=== PATIENT | female | born 1950 | race American Indian/Alaskan Native ===

== ENCOUNTER 2017-05-07 23:33 | Emergency (ER) | payer MEDICARE ==
[2017-05-08] MEDS ORDERED: ASPIRIN PO ONE (00:13)
[2017-05-08 00:36] LABS: Basophils # (Auto) 0.1 K/mm3 (0.0-0.1); Basophils % (Auto) 0.9 % (0.0-1.8); Eosinophils # (Auto) 0.2 K/mm3 (0.0-0.4); Eosinophils % (Auto) 2.1 % (0.0-4.3); Hematocrit 37.6 % (30.3-42.9); Hemoglobin 12.3 gm/dl (10.1-14.3); Lymphocytes # (Auto) 2.6 K/mm3 (1.2-5.4); Lymphocytes % (Auto) 32.6 % (13.4-35.0); Mean Corpuscular HGB Conc 33 % (30-34); Mean Corpuscular Hemoglobin 29 pg (28-32); Mean Corpuscular Volume 89 fl (79-97); Monocytes # (Auto) 0.6 K/mm3 (0.0-0.8); Monocytes % (Auto) 7.3 % (0.0-7.3); Platelet Count 245 K/mm3 (140-440); Red Blood Count 4.21 M/mm3 (3.65-5.03); Red Cell Distribution Width 15.1 % (13.2-15.2)
[2017-05-08] MEDS ORDERED: APRESOLINE IV ONE (00:55)
[2017-05-08 01:02] LABS: Calcium 8.8 mg/dL (8.4-10.2)
[2017-05-08] MEDS ORDERED: ZOFRAN IV ONE (01:26)
[2017-05-08] MEDS ORDERED: MORPHINE IV ONE (01:26)
--- NOTE | 2017-05-08 01:29 | Emergency Department Report ---
HPI - General Chief Complaint: Chest Pain Time Seen by Provider: 05/08/17 00:51 - HPI HPI: The patient is a 67-year-old female who presents for evaluation of abdominal pain. The patient reports bilateral upper abdominal pain since last light, 12 hours ago, currently 5/10 in severity, cramping in quality, intermittent, waxing and waning, exacerbated with movement. She also reports this patient some fluttering in the chest, but no chest pain. The patient also denies fever, chills, night sweats, bilious vomiting, diarrhea, blood in the stool, dark tarry stool, dysuria, hematuria, flank pain, genital discharge, inability to pass flatus. ED Past Medical Hx - Past Medical History Previous Medical History?: Yes Hx Hypertension: Yes Hx Congestive Heart Failure: Yes Hx Diabetes: No - Surgical History Past Surgical History?: Yes Additional Surgical History: HERNIA repair - Social History Smoking Status: Never Smoker Substance Use Type: None - Medications Home Medications: Home Medications Medication Instructions Recorded Confirmed Last Taken Type Carvedilol 12.5 mg PO BID 05/08/17 05/08/17 Unknown History Hydrochlorothiazide [HCTZ] 25 mg PO QDAY 05/08/17 05/08/17 Unknown History Ramipril 10 mg PO BID 05/08/17 05/08/17 Unknown History Simvastatin 20 mg PO QDAY 05/08/17 05/08/17 Unknown History traMADol [Ultram 50 MG tab] 50 mg PO Q6HR PRN #15 tablet 05/08/17 Unknown Rx ED Review of Systems ROS: Stated complaint: CHEST PAIN,HIGH BLOOD PRESSURE Other details as noted in HPI Constitutional: denies: fever ENT: denies: throat or neck pain Respiratory: denies: cough, shortness of breath Cardiovascular: denies: chest pain Endocrine: denies unexplained weight loss or gain Gastrointestinal: reports: abdominal pain, nausea Genitourinary: denies: dysuria Musculoskeletal: denies: leg swelling Skin: denies: rash Neurological: denies: headache Hematological/Lymphatic: denies: easy bleeding or easy bruising Psych: denies sadness or hopelessness Physical Exam - Physical Exam Vital Signs: Vital Signs 05/08/17 05/08/17 00:05 00:45 Temperature 98.4 F 98.1 F Pulse Rate 72 64 Respiratory 20 16 Rate Blood Pressure 228/96 Blood Pressure 228/96 199/85 [Right] O2 Sat by Pulse 100 99 Oximetry Physical Exam: General: well-nourished, well-developed, no acute distress Head: Normocephalic, atraumatic Eyes: normal sclera ENT: Mucous membranes are pink and moist Neck: trachea midline, neck supple, No neck stiffness, no cervical adenopathy Respiratory: Breath sounds equal bilaterally, no wheezing, rales, or rhonchi Cardio: S1 and S2 present, no murmurs, rubs, gallops, capillary refill is brisk Abdomen: Normoactive bowel sounds, soft abdomen, right upper quadrant and left upper quadrant tenderness to palpation present, no rigidity, no guarding or rebound tenderness Musc: No pitting edema Skin: No rash Neuro: no facial drooping, normal speech Psych: Normal affect ED Course Vital Signs 05/08/17 05/08/17 00:05 00:45 Temperature 98.4 F 98.1 F Pulse Rate 72 64 Respiratory 20 16 Rate Blood Pressure 228/96 Blood Pressure 228/96 199/85 [Right] O2 Sat by Pulse 100 99 Oximetry ED Medical Decision Making - Lab Data Result diagrams: 05/08/17 00:17 05/08/17 00:17 - Medical Decision Making The patient was seen and examined by myself. The patient is placed on a cardiac cath rn and continuous pulse ox. On initial evaluation, the patient was found to be in no distress. Evaluation orders are placed. IV access is established and the patient is given 1 L normal saline fluid bolus and Zofran for nausea, and IV analgesic for pain. Lab results exhibited mildly elevated lipase of 100, and otherwise were non-concerning including troponin level, WBC, hemoglobin, hematocrit, electrolytes, renal function, LFTs, and urinalysis. The patient was reevaluated and reported that their symptoms were markedly improved. The patient is stable for discharge with outpatient follow-up. The patient is given follow-up and return instructions. The patient expressed understanding and agreed with the plan. The patient is discharged in stable condition. Critical care attestation.: If time is entered above; I have spent that time in minutes in the direct care of this critically ill patient, excluding procedure time. ED Disposition Clinical Impression: Abdominal pain, acute, generalized Pancreatitis, acute Qualifiers: Pancreatitis type: unspecified pancreatitis type Acute pancreatitis complication: unspecified Qualified Code(s): K85.90 - Acute pancreatitis without necrosis or infection, unspecified Disposition: DC-01 TO HOME OR SELFCARE Is pt being admited?: No Does the pt Need Aspirin: No Condition: Stable Instructions: Abdominal Pain (ED), Pancreatitis (ED) Referrals: PRIMARY CARE, [Referring] - 3-5 Days Time of Disposition: 03:27
[2017-05-08 01:30] LABS: Alanine Aminotransferase 14 units/L (7-56); Albumin 3.8 g/dL (3.9-5); Lipase 100 units/L (13-60)
[2017-05-08 01:38] LABS: Bilirubin,Direct < 0.2 mg/dL (0-0.2)
[2017-05-08 04:18] VITALS: BP 166/74
== END 2017-05-08 04:18 | disposition home or self-care (01) ==
LOC: ED 23:33
DX: K85.90 Acute pancreatitis without necrosis or infection, unspecified (principal); I11.0 Hypertensive heart disease with heart failure; I50.9 Heart failure, unspecified
CPT/HCPCS: 36415; 80048; 80074; 83690; 84484; 85025; 93005; 93010; 96374; 96375; 99284; J0360; J2270; J2405

== ENCOUNTER 2017-05-10 12:42 | Emergency (ER) | payer MEDICARE ==
[2017-05-10 12:50] VITALS: BP 195/62
[2017-05-10 14:39] LABS: Bacteria,Urine 1+ /HPF (Negative); Bilirubin,Urine NEG (Negative); Blood,Urine NEG (Negative); Color,Urine Yellow (Yellow); Mucus,Urine FEW /HPF; Protein,Urine <15 mg/dL mg/dL (Negative); Urobilinogen,Urine < 2.0 mg/dL (<2.0)
--- NOTE | 2017-05-10 14:39 | Emergency Department Report ---
Blank Doc - Documentation Documentation: Patient is a 67-year-old Female who is presenting with right flank pain. Patient states the pain started roughly 3-4 days ago. Patient was here 2 days ago and was evaluated. She states that the pain has not gone away. Patient had no imaging studies at that time. Patient will have a CT abdomen and pelv as well as a urinalysis done
--- NOTE | 2017-05-10 14:42 | Cat Scan Report ---
CT ABDOMEN PELVIS WITHOUT CONTRAST: HISTORY: Right flank pain. COMPARISON: none. TECHNIQUE: Helical CT in 1.25mm intervals without IV contrast. Sagittal and coronal reconstructions. FINDINGS: Lung bases: Moderate cardiomegaly. The visualized lung bases are adequately aerated. Liver: Normal. Biliary system: Normal. Pancreas: Normal. Spleen: Normal. Kidneys/ureters/bladder: There is moderate motion artifact at the level of the kidneys. A few scattered punctate renal stones are suspected in both kidneys. Probable 1.3 cm hemorrhagic cyst in the mid right kidney. The ureters are normal course and caliber. The bladder is empty but grossly normal. Adrenal glands: Normal. Aorta: Normal. Intestines: Within normal limits given no oral contrast was administered. A few diverticula are identified in the distal colon. Appendix: Normal. Pelvic viscera: 1 cm calcified uterine fibroid is noted in the right lateral wall. The uterus and adnexa are unremarkable otherwise. Ascites: None. Adenopathy: None. Musculoskeletal: Previous hernia changes or ventral wall repair changes are identified in the anterior pelvis. No obvious recurrent hernia on this limited exam. There is moderate thoracolumbar spondylosis but no evidence for fracture or suspicious bony lesion. IMPRESSION: No acute inflammatory process is identified. Punctate bilateral renal stones. No hydronephrosis. Mild uterine fibroid disease. Cardiomegaly.
--- NOTE | 2017-05-10 15:16 | Emergency Department Report ---
HPI - General Chief Complaint: Abdominal Pain Time Seen by Provider: 05/10/17 13:33 - HPI HPI: Patient is a 67-year-old female who presents to ED complaining of abdominal pain that started Tuesday. Patient states pain is localized to her bilateral flank region. Patient states right worse than left. She states urinary frequency. She denies fevers/chills/nausea vomiting/diarrhea/vaginal discharge or pain ED Past Medical Hx - Past Medical History Hx Hypertension: Yes Hx Congestive Heart Failure: Yes Hx Diabetes: No - Surgical History Additional Surgical History: HERNIA repair - Social History Smoking Status: Never Smoker Substance Use Type: Alcohol - Medications Home Medications: Home Medications Medication Instructions Recorded Confirmed Last Taken Type Carvedilol 12.5 mg PO BID 05/08/17 05/08/17 Unknown History Hydrochlorothiazide [HCTZ] 25 mg PO QDAY 05/08/17 05/08/17 Unknown History Ramipril 10 mg PO BID 05/08/17 05/08/17 Unknown History Simvastatin 20 mg PO QDAY 05/08/17 05/08/17 Unknown History HYDROcodone/APAP 5-325 [[place] 1 each PO Q6HR PRN #20 tablet 05/10/17 Unknown Rx 5/325] Naproxen [Naprosyn TAB] 500 mg PO BID #30 tablet 05/10/17 Unknown Rx Sulfamethoxazole/Trimethoprim 1 each PO BID #14 tablet 05/10/17 Unknown Rx [Bactrim DS TAB] ED Review of Systems ROS: Stated complaint: ABDOMINAL PAIN Other details as noted in HPI Constitutional: denies: chills, fever Eyes: denies: eye pain, eye discharge, vision change ENT: denies: ear pain, throat pain Respiratory: denies: cough, shortness of breath, wheezing Cardiovascular: denies: chest pain, palpitations Endocrine: no symptoms reported Gastrointestinal: denies: abdominal pain, nausea, vomiting, diarrhea, constipation Genitourinary: denies: urgency, dysuria, discharge Musculoskeletal: denies: back pain, joint swelling, arthralgia Skin: denies: rash, lesions Neurological: denies: headache, weakness, paresthesias Psychiatric: denies: anxiety, depression Hematological/Lymphatic: denies: easy bleeding, easy bruising Physical Exam - Physical Exam Vital Signs: Vital Signs 05/10/17 12:47 Temperature 98.3 F Pulse Rate 68 Respiratory 20 Rate Blood Pressure 195/62 O2 Sat by Pulse 97 Oximetry Physical Exam: GENERAL: Alert and oriented x3, no apparent distress, Normal Gait, atraumatic. HEAD: Head is normocephalic and a-traumatic. NECK: Supple. Non edematous, No carotid bruits. No lymphadenopathy or thyromegaly. No C-spine tenderness LUNGS: Symetrical with respiration, No wheezing, no rales or crackles, CTAB. HEART: S1, S2 present, regular rate and rhythm without murmur, no rubs, no gallops. Non tender to palpation ABDOMEN: No organomegaly was noted,Positive bowel sounds, soft, and non- distended. . Nontender to palpation on all Quadrants, NO CVA tenderness. BACK: Full range of motion, no spinal tenderness, nontender to palpation. NEUROLOGIC: The patient is cooperative with no focal neurologic deficits. SKIN: Warm and dry, No lesions, No ulceration or induration present. ED Course Vital Signs 05/10/17 12:47 Temperature 98.3 F Pulse Rate 68 Respiratory 20 Rate Blood Pressure 195/62 O2 Sat by Pulse 97 Oximetry ED Medical Decision Making - Medical Decision Making 7-year-old female presents with kidney stones/UTI ED course: Urinalysis Critical care attestation.: If time is entered above; I have spent that time in minutes in the direct care of this critically ill patient, excluding procedure time. ED Disposition Clinical Impression: Kidney calculi, Uterine fibroid UTI (urinary tract infection) Qualifiers: Urinary tract infection type: acute cystitis Hematuria presence: without hematuria Qualified Code(s): N30.00 - Acute cystitis without hematuria Disposition: TO HOME OR SELFCARE Is pt being admited?: No Does the pt Need Aspirin: No Condition: Stable Instructions: Kidney Stones (ED), Renal Colic (ED), Abdominal Pain (ED), Flank Pain (ED) Additional Instructions: Make sure to follow up with the primary care physician as discussed. Take all your medications as you've been prescribed. If you have any worsening symptoms or develop new symptoms please return to ED immediately. Prescriptions: HYDROcodone/APAP 5-325 [[place] 5/325] 1 each PO Q6HR PRN #20 tablet PRN Reason: Pain Naproxen [Naprosyn TAB] 500 mg PO BID #30 tablet Sulfamethoxazole/Trimethoprim [Bactrim DS TAB] 1 each PO BID #14 tablet Referrals: KAVON PRIEST [Other] - 3-5 Days MAULIK LOPEZ MD [Referring] - 3-5 Days [facility] [Provider Group] - 3-5 Days Forms: Accompanied Note, Work/School Release Form(ED) Time of Disposition: 15:42
[2017-05-10] MEDS ORDERED: TORADOL IM ONE (15:26)
== END 2017-05-10 16:04 | disposition home or self-care (01) ==
LOC: ED 12:42
DX: N20.0 Calculus of kidney (principal); N30.00 Acute cystitis without hematuria; D25.9 Leiomyoma of uterus, unspecified; I11.0 Hypertensive heart disease with heart failure
CPT/HCPCS: 74176; 81001; 96372; 99284; J1885